=== PATIENT | male | born 1960 | race Caucasian/White ===

== ENCOUNTER → 2018-01-12 | Outpatient (CLI) | payer BC ==
--- NOTE | 2018-01-12 12:32 | PCVCIMAG ---
APPROVED REPORT Study performed: 01/12/2018 11:46:00 EXAM: Comprehensive 2D, Doppler, and color-flow Echocardiogram Patient Location: Echo lab Status: routine BSA: 2.24 HR: 76 bpmBP: 152/96 mmHg Rhythm: NSR Other Information Study Quality: Adequate Risk Factors: Cardiac Risk Factors: HTN Indications Abnormal ECG Pre-Op 2D Dimensions IVSd: 11.32 (7-11mm) LVDd: 45.41 mm PWd: 11.29 (7-11mm)Ascending Ao: 41.08 (22-36mm) LVDs: 33.55 (25-40mm) Left Atrium: 36.76 (27-40mm) Aortic Root: 37.45 mm LV Single Plane 4CH: 50.05 % LV Single Plane 2CH: 53.79 % Biplane EF: 52.0 % Volumes Left Atrial Volume (Systole) Single Plane 4CH: 87.47 mLSingle Plane 2CH: 95.00 mL LA ESV Index: 42.00 mL/m2 Aortic Valve AoV Peak Carlos Manuel.: 1.37 m/s AO Peak Gr.: 7.56 mmHgLVOT Max P.91 mmHg LVOT Max V: 0.99 m/s Mitral Valve E/A Ratio: 0.9 MV Decel. Time: 325.12 ms MV E Max Carlos Manuel.: 0.45 m/s MV A Carlos Manuel.: 0.52 m/s IVRT: 124.57 ms Pulmonary Valve PV Peak Carlos Manuel.: 0.86 m/sPV Peak Gr.: 2.97 mmHg Pulmonary Vein P Vein S: 0.30 m/sP Vein A: 0.29 m/s P Vein D: 0.44 m/sP Vein A Dur.: 124.6 msec P Vein S/D Ratio: 0.68 Tricuspid Valve TR Peak Carlos Manuel.: 2.65 m/s TR Peak Gr.: 28.01 mmHg Left Ventricle The left ventricle is normal size. There is normal LV segmental wall motion. There is normal left ventricular wall thickness. Left ventricular systolic function is within lower limits of normal. LVEF is 50-55%. Grade I - abnormal relaxation pattern. Right Ventricle The right ventricle is normal size. The right ventricular systolic function is normal. Atria Left atrium is mild-moderately dilated. The right atrium size is normal. Aortic Valve The aortic valve is normal in structure. No aortic regurgitation is present. There is no aortic valvular stenosis. Mitral Valve The mitral valve is normal in structure. Trace mitral regurgitation. No evidence of mitral valve stenosis. Tricuspid Valve The tricuspid valve is normal in structure. Trace tricuspid regurgitation with PAP of 35 mmHg. Pulmonic Valve The pulmonary valve is normal in structure. There is no pulmonic valvular regurgitation. Great Vessels The aortic root is normal in size. The ascending aorta is mildly dilated to 4.1 cm. IVC is normal in size and collapses >50% with inspiration. Pericardium There is no pericardial effusion. There is no pleural effusion. <Conclusion> The left ventricle is normal size. LVEF is 50-55%. Left atrium is mild-moderately dilated. The aortic valve is normal in structure. The mitral valve is normal in structure. Trace mitral regurgitation. The tricuspid valve is normal in structure. Trace tricuspid regurgitation with PAP of 35 mmHg. The pulmonary valve is normal in structure. There is no pericardial effusion.
== END | disposition home or self-care (01) ==
LOC: PCVCIMAG 11:58
PROVIDERS: ATTEND Internal Medicine
DX: R94.31 Abnormal electrocardiogram [ECG] [EKG] (principal)
CPT/HCPCS: 93306

== ENCOUNTER → 2020-11-10 | Outpatient (CLI) | payer BC, OTHER ==
[~2020-11-10] MED LIST: IOHEXOL 300 MG/ML 100ML VIAL. IV ONE; LISI-517 PO; SIMV5TAB14 PO
--- NOTE | 2020-11-10 11:59 | KCIC ---
EXAM: Neck CT with intravenous contrast. HISTORY: Right neck mass. TECHNIQUE: Computed tomographic images of the neck were obtained following the administration of intr avenous contrast. Multiplanar reformatting was performed. *One or more of the following individualized dose reduction techniques were utilized for this examina tion: 1. Automated exposure control. 2. Adjustment of the mA and/or kV according to patient size. 3. Use of iterative reconstruction technique. COMPARISON: None. FINDINGS: There is a right submandibular mass measuring 4.9 cm craniocaudally by 3.4 cm transversely by 3.5 cm anteroposteriorly. This demonstrates internal blood flow and results in deviation of the fountain rrounding vessels and effacement of the adjacent internal jugular vein. The imaging appearance favors a pathologically enlarged lymph node. There is asymmetric enlargement of the right tonsil or soft tissues, measuring 3.5 cm. The airway rem ains patent and midline. The parotid, sublingual and thyroid glands are unremarkable. There are nonsp ecific bilateral cervical chain lymph nodes which are not clearly pathologically enlarged. There is medial deviation of the carotid bifurcations, a normal variant. There is partially calcified atherosclerotic plaque involving the proximal internal carotid arteries, with less than 50 percent s tenosis. The lung apices are unremarkable. There are degenerative changes involving the spine. There is no acute or suspicious osseous finding. There is mild right foraminal stenosis at C3-C4 and mild l eft foraminal stenosis at C4-C5 and C5-C6 and C6-C7. There are right greater than left maxillary sinus mucous retention cysts superimposed on paranasal si nus mucosal thickening. The visualized portions the brain are unremarkable. IMPRESSION: 1. 4.9 cm right submandibular mass at the site of palpable concern, the appearance of which favors a pathologically enlarged lymph node. There is also masslike asymmetric enlargement of the right tonsil . 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 Correlate with physical inspection. 2. Nonspecific bilateral cervical chain lymph nodes. No additional pathologically enlarged lymph node is seen. Electronically signed by: Skylar Huerta MD (11/10/2020 11:57 AM) [id number]
== END ==
LOC: KCIC CT 10:02
PROVIDERS: ATTEND Family Medicine
DX: R22.1 Localized swelling, mass and lump, neck (principal); J35.1 Hypertrophy of tonsils; R59.0 Localized enlarged lymph nodes; I65.29 Occlusion and stenosis of unspecified carotid artery; M47.812 Spondylosis without myelopathy or radiculopathy, cervical region; M48.02 Spinal stenosis, cervical region
CPT/HCPCS: 70491; Q9967